=== PATIENT | male | born 1950 | race Two or more races ===

== ENCOUNTER 2018-01-02 18:02 | Emergency (ER) | payer MEDICARE, MEDICAID ==
[~2018-01-02] VITALS: Ht 172.7 cm; Wt 72.6 kg
[2018-01-02 18:02] VITALS: BP 114/75
[~2018-01-02 18:02] MED LIST: ASPI-1152 PO; ATOR10TA PO; LEVO50TA8 PO; MAGN200T5 PO; ZINC220C8 PO
== END 2018-01-02 19:12 | disposition home or self-care (01) ==
LOC: ER 18:23
DX: S63.501A Unspecified sprain of right wrist, initial encounter (principal); E03.9 Hypothyroidism, unspecified; K59.00 Constipation, unspecified; Z95.5 Presence of coronary angioplasty implant and graft; Z79.82 Long term (current) use of aspirin; W01.0XXA Fall on same level from slipping, tripping and stumbling without subsequent striking against object, initial encounter; Y93.89 Activity, other specified; Y92.89 Other specified places as the place of occurrence of the external cause; Y99.8 Other external cause status
CPT/HCPCS: 73100; 73130; 99284; A4606; Z7610

== ENCOUNTER 2020-12-13 05:27 | Emergency (ER) | payer MEDICAID, MEDICARE, OTHER ==
[~2020-12-13] VITALS: Ht 180.3 cm; Wt 73.5 kg
[~2020-12-13 05:27] MED LIST changes: -ASPI-1152 PO; +ASPI-1420 PO; +ZINC1CAP2 PO; -ZINC220C8 PO
--- NOTE | 2020-12-13 05:47 | NUR ---
PT AAOX4. BIBRA FROM HOME C/O PALPITATIONS, HIGH BP, AND HR SINCE LAST NIGHT. PLACED IN BED 2 ON PATHOLOGY ASSISTANT AND PULSE OX. AWAITING ER MD FOR EVAL AND ORDERS. PER PT, TOOK NITRO, MAGNESIUM POWDER, AND 5 "BABY ASPIRINS" ANIMAL SCIENCE INSTRUCTOR.
--- NOTE | 2020-12-13 05:52 | NUR ---
blood obtained and send to lab
[2020-12-13 05:57] LABS: BASOPHILS % (AUTO) 0.3 % (0.0-2.0); EOSINOPHILS % (AUTO) 0.7 % (0.0-6.0); HEMATOCRIT 37 % (39-51); HEMOGLOBIN 12.6 g/dL (13.5-17.5); LYMPHOCYTES # (AUTO) 1.9 K/uL (0.8-4.8); LYMPHOCYTES % (AUTO) 40.8 % (20.0-44.0); MEAN CORPUSCULAR HGB CONC 34 g/dl (31.0-36.0); MEAN CORPUSCULAR VOLUME 94 fL (80-96); MONOCYTES # (AUTO) 0.3 K/uL (0.1-1.30); MONOCYTES % (AUTO) 6.6 % (2.0-12.0); NEUTROPHILS # (AUTO) 2.4 K/uL (1.8-8.9); NEUTROPHILS % (AUTO) 51.6 % (43.0-81.0); PLATELET COUNT (AUTO) 182 K/uL (150-450); RED BLOOD CELL COUNT(AUTO) 3.98 MIL/uL (4.5-6.0); WHITE BLOOD COUNT (AUTO) 4.6 K/uL (4.3-11.0)
[2020-12-13 06:03] LABS: CALCIUM, SERUM 8.7 mg/dL (8.5-10.1); CARBON DIOXIDE 27 mmol/L (21-32); CHLORIDE 106 mmol/L (98-107); GLUCOSE 102 mg/dL (74-106); POTASSIUM 3.8 mmol/L (3.5-5.1); SODIUM SERUM 142 mmol/L (136-145); UREA NITROGEN, BLOOD 19 mg/dL (7-18)
--- NOTE | 2020-12-13 06:06 | NUR ---
RADIOLOGY AT BEDSIDE
[2020-12-13 06:16] LABS: ALANINE AMINOTRANSFERASE 29 U/L (12-78); ALBUMIN 3.9 g/dL (3.4-5.0); ALKALINE PHOSPHATASE 58 U/L (46-116); ASPARTATE AMINOTRANSFERASE 23 U/L (15-37); BILIRUBIN,DIRECT 0.2 mg/dL (0.0-0.2); BILIRUBIN,TOTAL 0.6 mg/dL (0.2-1.0)
--- NOTE | 2020-12-13 06:22 | NUR ---
pcp uzair [phone] and iron handler Lisa [phone]
--- NOTE | 2020-12-13 09:17 | NUR ---
CALLED [employer] DEVELOPER ANALYST DR. BARKER [phone] ETL DATA ARCHITECT IS RATNA WILL BE PAGED.
[2020-12-13 09:52] VITALS: BP 121/71
--- NOTE | 2020-12-13 09:53 | NUR ---
Patient discharged to home in stable condition. Written and verbal after care instructions given. Patient verbalizes understanding of instruction.IV removed. Catheter intact and site benign. Pressure and 4x4 applied to site. No bleeding noted.
== END 2020-12-13 09:53 | disposition home or self-care (01) ==
LOC: ER 05:29
DX: R00.0 Tachycardia, unspecified (principal); R00.2 Palpitations; I44.0 Atrioventricular block, first degree; I10 Essential (primary) hypertension; E03.9 Hypothyroidism, unspecified; E78.00 Pure hypercholesterolemia, unspecified; Z98.890 Other specified postprocedural states; Z79.899 Other long term (current) drug therapy; Z79.82 Long term (current) use of aspirin
CPT/HCPCS: 36415; 71045-TC; 80048-TC; 80076-TC; 83735-TC; 83880; 84484-TC; 85025-TC; 85730-TC

== ENCOUNTER 2022-08-26 20:31 | Inpatient (IN) | payer OTHER ==
[~2022-08-26] VITALS: Ht 175.3 cm; Wt 74.8 kg
--- NOTE | 2022-08-26 21:15 | NUR ---
BIBSISTER FROM HOME C/O L SIDED CP SINCE NOON. 01/09 PAIN. PATIENT IS AAOX4. PATIENT DESCRIBED PAIN PINCHING WHICH TRAVELS FROM LEFT SIDE TO RIGHT SIDE BUT NOW ITS IN THE MINSTERNAL AREA. ATTACHED TO MONITOR. VITALS CHECKED.
--- NOTE | 2022-08-26 21:16 | NUR ---
AIR CONDITIONING MANAGER AT PT'S BEDSIDE
--- NOTE | 2022-08-26 21:16 | NUR ---
EMT AT PT'S BEDSIDE FOR EKG
--- NOTE | 2022-08-26 21:25 | NUR ---
SEWING MACHINES SALESPERSON AT PT'S BEDSIDE
[2022-08-26 21:31] LABS: BASOPHILS % (AUTO) 0.3 % (0.0-2.0); HEMATOCRIT 37 % (39-51); HEMOGLOBIN 12.4 g/dL (13.5-17.5); LYMPHOCYTES # (AUTO) 1.7 K/uL (0.8-4.8); LYMPHOCYTES % (AUTO) 37.5 % (20.0-44.0); MEAN CORPUSCULAR HGB CONC 33 g/dl (31.0-36.0); MEAN CORPUSCULAR VOLUME 92 fL (80-96); MONOCYTES # (AUTO) 0.5 K/uL (0.1-1.30); NEUTROPHILS # (AUTO) 2.4 K/uL (1.8-8.9); NEUTROPHILS % (AUTO) 51.2 % (43.0-81.0); PLATELET COUNT (AUTO) 200 K/uL (150-450); RED BLOOD CELL COUNT(AUTO) 4.05 MIL/uL (4.5-6.0); WHITE BLOOD COUNT (AUTO) 4.7 K/uL (4.3-11.0)
[2022-08-26 21:41] LABS: CALCIUM, SERUM 9.1 mg/dL (8.5-10.1); CARBON DIOXIDE 27 mmol/L (21-32); CHLORIDE 106 mmol/L (98-107); CREATININE 1.1 mg/dL (0.6-1.3); GLUCOSE 102 mg/dL (74-106); SODIUM SERUM 140 mmol/L (136-145); UREA NITROGEN, BLOOD 18 mg/dL (7-18)
[2022-08-26 21:47] LABS: ALANINE AMINOTRANSFERASE 29 U/L (12-78); ALBUMIN 3.7 g/dL (3.4-5.0); ALKALINE PHOSPHATASE 64 U/L (46-116); ASPARTATE AMINOTRANSFERASE 23 U/L (15-37); BILIRUBIN,DIRECT 0.1 mg/dL (0.0-0.2); BILIRUBIN,TOTAL 0.4 mg/dL (0.2-1.0); TOTAL PROTEIN, SERUM 6.7 g/dL (6.4-8.2)
[2022-08-26] MEDS ORDERED: ASPIRIN 325 MG TABLET ONE (22:13)
--- NOTE | 2022-08-26 22:20 | NUR ---
DR MIRANDA CANCELLED THE ASPIRIN. PATIENT TOOK 8 BABY ASPIRIN BEFORE COMING HERE
[2022-08-26] MEDS ORDERED: ASPIRIN 325 MG TABLET PO ONE (22:30)
--- NOTE | 2022-08-26 23:20 | NUR ---
SEASONAL CLERK AT BEDSIDE
--- NOTE | 2022-08-27 00:39 | NUR ---
COVID SWAB DONE AND SENT TO LAB
[2022-08-27] MEDS ORDERED: ONDANSETRON HCL/PF 4 MG/2 ML VIAL IVP PRN (01:00)
[2022-08-27] MEDS ORDERED: ZOLPIDEM TARTRATE 5 MG TABLET PO PRN (01:00)
[2022-08-27] MEDS ORDERED: MAGNESIUM HYDROXIDE 30 ML UDC PO PRN (01:00)
[2022-08-27] MEDS ORDERED: MAG HYDROX/AL HYDROX/SIMETH 30 ML UDC PO PRN (01:00)
[2022-08-27] MEDS ORDERED: Z GUARD REMEDY 4 OZ OINT TP PRN (01:00)
[2022-08-27] MEDS ORDERED: ACETAMINOPHEN 325 MG TABLET PO PRN (01:00)
--- NOTE | 2022-08-27 02:16 | NUR ---
RM 218-2
--- NOTE | 2022-08-27 03:07 | NUR ---
REPORT GIVEN TO DAMARIS CHESTER
--- NOTE | 2022-08-27 03:41 | NUR ---
TRANSFERRED PT TO ROOM VIA ACLS PROTOCOL
[2022-08-27] MEDS: ENOXAPARIN SODIUM 40 MG/0.4 ML DISP.SYRIN SQ SCH ×2 (04:45→21:51)
--- NOTE | 2022-08-27 04:45 | NUR ---
RN ADMITTING NOTE RECEIVED PATIENT VIA GURNEY. PATIENT IS AMBULATORY. A/OX4. ABLE TO MAKE NEEDS KNOWN. PATIENT ON ROOM AIR TOLERATING WELL NO SOB, BREATHING EVENLY. NO COMPLAINS OF CHEST PAIN OR DISCOMFORT AT THE MOMENT. PATIENT IS ON TELE MONITOR READING OF SINUS RHYTHM 79BPM. PATIENT WITH LOOP ON LEFT CHEST PER PATIENT THIS RECORDS HIS HEART ACTIVITY THAT DIRECTLY SENDS THE RHYTHM TO HIS DOCTORS OFFICE HE HAVE THIS FOR OVER 3 YEARS. IV ACCESS ON RIGHT ARM #20 SALINE LOCK NOTED TO BE PATENT AND INTACT. BODY CHECK IS DONE WITH PATIENT PERMISSION: NOTED TO HAVE INTACT SKIN. ALL BELONGING ARE ACCOUNTED FOR. PATIENT IS ORIENTED TO THE ROOM AND HOW TO USE THE CALL LIGHT. PATIENT VERBALIZES UNDERSTANDING. SAFETY MEASURE IN PLACED: BED LOCKED AND IN LOWEST POSITION, HOB ELEVATED, CALL LIGHT AND BEDSIDE TABLE WITHIN PATIENT REACH.
--- NOTE | 2022-08-27 06:56 | NUR ---
RN CLOSING NOTE PATIENT IN BED AWAKE. PATIENT IS AMBULATORY. A/OX4. ABLE TO MAKE NEEDS KNOWN. PATIENT ON ROOM AIR TOLERATING WELL NO SOB, BREATHING EVENLY. NO COMPLAINS OF CHEST PAIN OR DISCOMFORT AT THE MOMENT. PATIENT IS ON TELE MONITOR READING OF SINUS RHYTHM WITH FIRST DEGREE AV BLOCK 71BPM. PATIENT WITH LOOP ON LEFT CHEST. IV ACCESS ON RIGHT ARM #20 SALINE LOCK NOTED TO BE PATENT AND INTACT. ALL DUE MEDICATION IS GIVEN. ALL NEEDS ARE MET. MADE SURE PATIENT IS CLEAN AND COMFORTABLE. SAFETY MEASURE IN PLACED: BED LOCKED AND IN LOWEST POSITION, HOB ELEVATED, CALL LIGHT AND BEDSIDE TABLE WITHIN PATIENT REACH. ENDORSED TO NEXT SHIFT NURSE FOR CONTINUITY OF ARE.
[2022-08-27 07:00] VITALS: BP 122/75
--- NOTE | 2022-08-27 07:10 | NUR ---
ms rn received on bed, awake,alert,oriented x4,not in any form of distress, respirations even and unlabored,no sob noted, came in w/ cc of chest pain, nsr on monitor, denies pain at this time, will monitor patient.
[2022-08-27] MEDS: LEVOTHYROXINE SODIUM 50 MCG TABLET PO SCH (08:41)
[2022-08-27] MEDS: ASPIRIN EC 81 MG TABLET.DR PO SCH (08:41)
[2022-08-27] MEDS: MAGNESIUM OXIDE 400 MG TABLET PO SCH (08:41)
--- NOTE | 2022-08-27 09:00 | NUR ---
ms small breakfast served,due meds given,tolerated well.
[2022-08-27] MEDS ORDERED: UBID100C13 PO (11:10)
[2022-08-27] MEDS ORDERED: CHOL100043 PO (11:10)
[2022-08-27] MEDS ORDERED: ASCO-340 PO (11:10)
[2022-08-27] MEDS ORDERED: OMEG-167 PO (11:10)
--- NOTE | 2022-08-27 17:00 | NUR ---
ms rn was seen by radha byrne/ consuelo for cr angio in am,all needs attended.
--- NOTE | 2022-08-27 19:28 | NUR ---
ms rn on bed, all needs attended.
--- NOTE | 2022-08-27 19:30 | NUR ---
PULMONOLOGY PHYSICIAN OPENING NOTE RECEIVED PT IN BED AWAKE, FAMILY AT BEDSIDE, AMBULATORY PER REPORT. A/OX4, ABLE TO MAKE NEEDS KNOWN. ON ROOM AIR TOLERATING WELL NO SOB, BREATHING EVENLY. DENIES CHEST PAIN OR DISCOMFORT AT THE MOMENT. PATIENT IS ON TELE MONITOR READING OF SINUS RHYTHM WITH FIRST DEGREE AV BLOCK 75BPM. PATIENT WITH LOOP ON LEFT CHEST. IV ACCESS ON RIGHT ARM #20, PATENT, INTACT, FLUSHING WELL. SAFETY MEASURES IN PLACE: BED LOCKED AND IN LOWEST POSITION, HOB ELEVATED, SIDE RAILS UP X3, CALL LIGHT AND BEDSIDE TABLE WITHIN PATIENT REACH. WILL CONTINUE TO MONITOR AND ASSIST.
[2022-08-27 20:00] VITALS: BP 132/69
[2022-08-27] MEDS ORDERED: ATORVASTATIN 10 MG TABLET PO SCH (22:00)
[2022-08-28] VITALS: BP 134/69
[2022-08-28 04:00] VITALS: BP 110/61
[2022-08-28] MEDS: LEVOTHYROXINE SODIUM 50 MCG TABLET PO SCH (06:26)
[2022-08-28 06:43] LABS: BASOPHILS % (AUTO) 0.2 % (0.0-2.0); EOSINOPHILS % (AUTO) 1.4 % (0.0-6.0); HEMATOCRIT 38 % (39-51); HEMOGLOBIN 12.7 g/dL (13.5-17.5); LYMPHOCYTES # (AUTO) 1.8 K/uL (0.8-4.8); MEAN CORPUSCULAR HGB CONC 34 g/dl (31.0-36.0); MEAN CORPUSCULAR VOLUME 92 fL (80-96); MONOCYTES # (AUTO) 0.5 K/uL (0.1-1.30); MONOCYTES % (AUTO) 9.6 % (2.0-12.0); NEUTROPHILS # (AUTO) 2.3 K/uL (1.8-8.9); NEUTROPHILS % (AUTO) 49.8 % (43.0-81.0); PLATELET COUNT (AUTO) 202 K/uL (150-450); RED BLOOD CELL COUNT(AUTO) 4.09 MIL/uL (4.5-6.0); WHITE BLOOD COUNT (AUTO) 4.7 K/uL (4.3-11.0)
--- NOTE | 2022-08-28 06:48 | NUR ---
SIEVE REPAIRER CLOSING NOTE PT IN BED AWAKE, WATCHING TV AT THIS TIME. A/OX4, ABLE TO MAKE NEEDS KNOWN. STABLE ON ROOM AIR TOLERATING WELL NO SOB, BREATHING EVENLY. DENIES CHEST PAIN OR DISCOMFORT AT THE MOMENT. ON TELE MONITOR READING OF SINUS RHYTHM, 64 HR. PATIENT WITH LOOP ON LEFT CHEST. IV ACCESS ON RIGHT ARM #20 SL, PATENT, INTACT, FLUSHING WELL. ALL CARE PROVIDED AND MEDS TOLERATED WELL. SAFETY MEASURES MAINTAINED: BED LOCKED AND IN LOWEST POSITION, HOB ELEVATED, SIDE RAILS UP X3, CALL LIGHT AND BEDSIDE TABLE WITHIN PATIENT REACH. WILL ENDORSE CHANDANA TO DAY SHIFT NURSE.
[2022-08-28 07:08] LABS: CALCIUM, SERUM 8.9 mg/dL (8.5-10.1); CREATININE 0.8 mg/dL (0.6-1.3); MAGNESIUM 2.1 mg/dL (1.8-2.4); PHOSPHORUS 3.3 mg/dL (2.5-4.9)
--- NOTE | 2022-08-28 07:10 | NUR ---
ms rn received on bed, awake,alert,oriented x4,not in any form of distress, respirations even and unlabored,no sob noted,denies pain at this time, was seen by dr. espinoza w/order for stress test, ct agio will be done today at p30 per radiology staff, will wait for them to get patient.all needs attended.
[2022-08-28 08:00] VITALS: BP 112/74
--- NOTE | 2022-08-28 08:20 | NUR ---
ms rn was seen by dr. luis m garcia/ orders made and carried out.
[2022-08-28] MEDS ORDERED: IOHEXOL-350 100 ML VIAL IV ONE (11:46)
[2022-08-28] MEDS ORDERED: NITROGLYCERIN 0.4 MG/TAB BOTTLE ONE (11:46)
[2022-08-28] MEDS ORDERED: METOPROLOL TARTRATE INJ 5 MG/5 ML AMPUL ONE (11:46)
[2022-08-28] MEDS ORDERED: CT SWABBABLE VALVE TRANS SET 1 EA INFUS.SET MC ONE (11:46)
[2022-08-28] MEDS ORDERED: IV NS 0.9% 250 ML IV ONE (11:47)
--- NOTE | 2022-08-28 12:42 | NUR ---
Received in CT Room 1 for CTCA. Made comfortable. Explained procedure to patient. Answered all questions. Initial vital signs stable with no complaints. Given Metropolol 5m and NTG 1/150 SL x1 with no untoward reactions. Procedure tolerated well with stable vital signs (See CTA intervention). Will provide hand off report to floor RN.
[2022-08-28] MEDS: MAGNESIUM OXIDE 400 MG TABLET PO SCH (13:16)
[2022-08-28] MEDS: ASPIRIN EC 81 MG TABLET.DR PO SCH (13:16)
--- NOTE | 2022-08-28 15:00 | NUR ---
ms turning sander tender tolerated well, patient went brought back on the floor, all needs attended
[2022-08-28 16:00] VITALS: BP 106/64
--- NOTE | 2022-08-28 18:00 | NUR ---
ms rn leila=rosalino instruction given and understood, patient went home w/ no distress noted, to have a follow up w/ dr. marroquin in one week.
== END 2022-08-28 18:00 | disposition home or self-care (01) | DRG 303 ==
LOC: ER 20:35 → TELE 08-27 03:12
PROVIDERS: ADMIT Internal Medicine; ATTEND Internal Medicine
DX: I25.110 Atherosclerotic heart disease of native coronary artery with unstable angina pectoris (principal); E03.9 Hypothyroidism, unspecified; E78.00 Pure hypercholesterolemia, unspecified; I10 Essential (primary) hypertension; I25.2 Old myocardial infarction; J44.9 Chronic obstructive pulmonary disease, unspecified; F41.9 Anxiety disorder, unspecified; N40.0 Benign prostatic hyperplasia without lower urinary tract symptoms; Z86.73 Personal history of transient ischemic attack (TIA), and cerebral infarction without residual deficits; Z95.5 Presence of coronary angioplasty implant and graft; K21.9 Gastro-esophageal reflux disease without esophagitis; M19.90 Unspecified osteoarthritis, unspecified site; Z87.440 Personal history of urinary (tract) infections; Z79.899 Other long term (current) drug therapy; Z20.822 Contact with and (suspected) exposure to COVID-19
CPT/HCPCS: 36415; 71045-TC; 75574; 80048-TC; 80061-TC; 80076-TC; 83735-TC; 84100-TC; 84443-TC; 84484-TC; 85025-TC; 85730-TC; 87081-TC; 93307-TC; C9803; G0378; J1650; J3490; J7050; Q9967

== ENCOUNTER 2024-08-08 01:52 | Inpatient (IN) | payer MEDICARE, OTHER ==
[~2024-08-08] VITALS: Ht 180.3 cm; Wt 75.3 kg
[~2024-08-08 01:52] MED LIST changes: +ASCO-340 PO; +CHOL100043 PO; +OMEG-167 PO; +UBID100C13 PO
[2024-08-08 03:24] LABS: CALCIUM, SERUM 8.8 mg/dL (8.5-10.1); CREATININE 1.1 mg/dL (0.6-1.3)
[2024-08-08 03:36] LABS: BASOPHILS % (AUTO) 0.3 % (0.0-2.0); EOSINOPHILS % (AUTO) 0.4 % (0.0-6.0); HEMATOCRIT 35 % (39-51); HEMOGLOBIN 11.9 g/dL (13.5-17.5); LYMPHOCYTES # (AUTO) 1.5 K/uL (0.8-4.8); LYMPHOCYTES % (AUTO) 29.1 % (20.0-44.0); MEAN CORPUSCULAR HEMOGLOBIN 31 PG (26.0-33.0); MEAN CORPUSCULAR HGB CONC 34 g/dl (31.0-36.0); MEAN CORPUSCULAR VOLUME 93 fL (80-96); MONOCYTES # (AUTO) 0.5 K/uL (0.1-1.30); MONOCYTES % (AUTO) 9.3 % (2.0-12.0); NEUTROPHILS # (AUTO) 3.1 K/uL (1.8-8.9); NEUTROPHILS % (AUTO) 60.9 % (43.0-81.0); PLATELET COUNT (AUTO) 177 K/uL (150-450); RED BLOOD CELL COUNT(AUTO) 3.79 MIL/uL (4.5-6.0); RED CELL DISTRIBUTION WIDTH 13.7 % (11.5-15.0)
[2024-08-08 03:38] LABS: ALBUMIN 3.5 g/dL (3.4-5.0); BILIRUBIN,TOTAL 0.5 mg/dL (0.2-1.0); TOTAL PROTEIN, SERUM 6.4 g/dL (6.4-8.2)
[2024-08-08 04:56] LABS: APPEARANCE,URINE CLEAR (CLEAR); BILIRUBIN,URINE NEGATIVE (NEGATIVE); BLOOD, URINE NEGATIVE Ery/uL (NEGATIVE); COLOR,URINE YELLOW (YELLOW); KETONES,URINE NEGATIVE (NEGATIVE); LEUKOCYTE ESTERASE ,URINE 1+ (NEGATIVE); NITRITE, URINE NEGATIVE (NEGATIVE); PH,URINE 6.5 (5.0-8.0); PROTEIN,URINE NEGATIVE (NEGATIVE); UGLUCOSE NEGATIVE (NEGATIVE); UROBILINOGEN,URINE 0.2 EU/dL (0.2)
[2024-08-08 04:57] LABS: ADD URINE CULTURE YES; BACTERIA,URINE Few /HPF (None Seen); RBC,URINE 0-2 /HPF (0-2); SQUAMOUS EPITHELIAL CELL,UR Rare /HPF (None Seen)
[2024-08-08] MEDS ORDERED: Z GUARD REMEDY 4 OZ OINT TP PRN (06:00)
[2024-08-08] MEDS ORDERED: MAG HYDROX/AL HYDROX/SIMETH 30 ML UDC PO PRN (06:00)
[2024-08-08] MEDS ORDERED: ACETAMINOPHEN 325 MG TABLET PO PRN (06:00)
[2024-08-08] MEDS ORDERED: ONDANSETRON HCL/PF 4 MG/2 ML VIAL IVP PRN (06:00)
[2024-08-08] MEDS ORDERED: MAGNESIUM HYDROXIDE 30 ML UDC PO PRN (06:00)
[2024-08-08 07:20] VITALS: O2SAT 100
[2024-08-08] MEDS ORDERED: MULT-594 PO (07:58)
[2024-08-08] MEDS: PANTOPRAZOLE 40 MG TABLET.DR PO SCH (10:10)
[2024-08-08] MEDS ORDERED: CLONIDINE HCL 0.1 MG TABLET PO PRN (15:00)
[2024-08-08 16:00] VITALS: BP 126/79; TEMP 98.4; O2SAT 99
[2024-08-08] MEDS: ASPIRIN EC 81 MG TABLET.DR PO SCH (18:17)
[2024-08-08] MEDS: ATORVASTATIN 10 MG TABLET PO SCH (18:18)
[2024-08-08 20:00] VITALS: BP 138/88; TEMP 97.9; O2SAT 100
[2024-08-09] VITALS: BP 123/72; TEMP 97.5; O2SAT 98
[2024-08-09 04:00] VITALS: BP 124/66; TEMP 97.5; O2SAT 96
[2024-08-09] MEDS: LEVOTHYROXINE SODIUM 50 MCG TABLET PO SCH (06:33)
[2024-08-09 07:02] LABS: BASOPHILS % (AUTO) 0.3 % (0.0-2.0); HEMATOCRIT 37 % (39-51); HEMOGLOBIN 12.4 g/dL (13.5-17.5); LYMPHOCYTES # (AUTO) 1.7 K/uL (0.8-4.8); LYMPHOCYTES % (AUTO) 37.3 % (20.0-44.0); MEAN CORPUSCULAR HEMOGLOBIN 31 PG (26.0-33.0); MEAN CORPUSCULAR HGB CONC 34 g/dl (31.0-36.0); MEAN CORPUSCULAR VOLUME 93 fL (80-96); MONOCYTES # (AUTO) 0.5 K/uL (0.1-1.30); MONOCYTES % (AUTO) 10.4 % (2.0-12.0); NEUTROPHILS # (AUTO) 2.3 K/uL (1.8-8.9); PLATELET COUNT (AUTO) 184 K/uL (150-450); RED BLOOD CELL COUNT(AUTO) 3.96 MIL/uL (4.5-6.0); RED CELL DISTRIBUTION WIDTH 13.6 % (11.5-15.0); WHITE BLOOD COUNT (AUTO) 4.5 K/uL (4.3-11.0)
[2024-08-09 08:15] LABS: CALCIUM, SERUM 8.2 mg/dL (8.5-10.1); CARBON DIOXIDE 28 mmol/L (21-32); CHLORIDE 106 mmol/L (98-107); GLUCOSE 92 mg/dL (74-106); PHOSPHORUS 2.5 mg/dL (2.5-4.9); SODIUM SERUM 138 mmol/L (136-145); UREA NITROGEN, BLOOD 16 mg/dL (7-18)
[2024-08-09] MEDS: MULTIVITAMINS,THERAGRAN 1 UDTAB TABLET PO SCH (08:31)
[2024-08-09] MEDS: CHOLECALCIFEROL 1,000 UNIT TABLET (VIT D3) PO SCH (08:32)
[2024-08-09] MEDS: ASCORBIC ACID 500 MG TABLET PO SCH (08:33)
[2024-08-09] MEDS: MAGNESIUM OXIDE 400 MG TABLET PO SCH (08:40)
[2024-08-09] MEDS ORDERED: Medication Not On Formulary EA (Omega-3 Fatty Acids/Fish Oil (Fish Oil 1,000 Mg Softgel) PO SCH (09:00)
[2024-08-09] MEDS ORDERED: CLON0.1T PO (10:56)
== END 2024-08-09 15:22 | disposition home or self-care (01) | DRG 310 ==
LOC: ER 01:53 → TELE 08:04
PROVIDERS: ADMIT Nurse Practitioner Acute Care; ATTEND Nurse Practitioner Acute Care
DX: R00.2 Palpitations (principal); I16.0 Hypertensive urgency; E03.9 Hypothyroidism, unspecified; I10 Essential (primary) hypertension; I25.10 Atherosclerotic heart disease of native coronary artery without angina pectoris; I25.2 Old myocardial infarction; Z79.82 Long term (current) use of aspirin; Z95.5 Presence of coronary angioplasty implant and graft; Z95.818 Presence of other cardiac implants and grafts
CPT/HCPCS: 36415; 71045-TC; 80048-TC; 80053-TC; 81001; 83735-TC; 83880; 84100-TC; 84443-TC; 84484-TC; 85025-TC; 87086-TC; 93307-TC; G0378

== ENCOUNTER 2024-11-29 17:04 | Inpatient (IN) | payer MEDICARE, OTHER ==
[~2024-11-29] VITALS: Ht 175.3 cm; Wt 80.3 kg
[~2024-11-29 17:04] MED LIST changes: +CLON0.1T PO; +MULT-594 PO
[2024-11-29 17:38] LABS: PLATELET COUNT (AUTO) 197 K/uL (150-450); RED BLOOD CELL COUNT(AUTO) 4.04 MIL/uL (4.5-6.0); RED CELL DISTRIBUTION WIDTH 13.8 % (11.5-15.0); WHITE BLOOD COUNT (AUTO) 4.3 K/uL (4.3-11.0)
[2024-11-29 17:48] LABS: CALCIUM, SERUM 8.5 mg/dL (8.5-10.1); CREATININE 0.9 mg/dL (0.6-1.3); SODIUM SERUM 142 mmol/L (136-145); UREA NITROGEN, BLOOD 18 mg/dL (7-18)
[2024-11-29] MEDS ORDERED: ZOLPIDEM TARTRATE 5 MG TABLET PO PRN (18:00)
[2024-11-29] MEDS ORDERED: ACETAMINOPHEN 325 MG TABLET PO PRN (18:00)
[2024-11-29] MEDS ORDERED: MAG HYDROX/AL HYDROX/SIMETH 30 ML UDC PO PRN (18:00)
[2024-11-29] MEDS ORDERED: ONDANSETRON HCL/PF 4 MG/2 ML VIAL IVP PRN (18:00)
[2024-11-29] MEDS ORDERED: MAGNESIUM HYDROXIDE 30 ML UDC PO PRN (18:00)
[2024-11-29] MEDS ORDERED: Z GUARD REMEDY 4 OZ OINT TP PRN (18:00)
[2024-11-29 20:00] VITALS: BP 135/80; TEMP 97.9; O2SAT 96
[2024-11-29] MEDS ORDERED: MAGNESIUM OXIDE 400 MG TABLET PO PRN (20:00)
[2024-11-29] MEDS: ENOXAPARIN SODIUM 40 MG/0.4 ML DISP.SYRIN SQ SCH (21:20)
[2024-11-30 00:08] VITALS: BP 125/73; TEMP 97.7; O2SAT 97
[2024-11-30 04:00] VITALS: BP 131/70; TEMP 97.2; O2SAT 99
[2024-11-30 08:00] VITALS: BP 135/77; TEMP 98.2; O2SAT 99
[2024-11-30 08:33] LABS: PLATELET COUNT (AUTO) 205 K/uL (150-450); RED BLOOD CELL COUNT(AUTO) 4.29 MIL/uL (4.5-6.0); RED CELL DISTRIBUTION WIDTH 13.3 % (11.5-15.0); WHITE BLOOD COUNT (AUTO) 4.3 K/uL (4.3-11.0)
[2024-11-30 08:37] LABS: CALCIUM, SERUM 8.6 mg/dL (8.5-10.1); CREATININE 0.9 mg/dL (0.6-1.3); PHOSPHORUS 2.7 mg/dL (2.5-4.9); SODIUM SERUM 145.0 mmol/L (136-145); UREA NITROGEN, BLOOD 13.0 mg/dL (7-18)
[2024-11-30] MEDS: ASCORBIC ACID 500 MG TABLET PO SCH (09:32)
[2024-11-30] MEDS: PANTOPRAZOLE 40 MG TABLET.DR PO SCH (09:32)
[2024-11-30] MEDS: MULTIVITAMINS,THERAGRAN 1 UDTAB TABLET PO SCH (09:32)
[2024-11-30] MEDS: ASPIRIN EC 81 MG TABLET.DR PO SCH (09:32)
[2024-11-30] MEDS: LEVOTHYROXINE SODIUM 50 MCG TABLET PO SCH (09:33)
[2024-11-30 12:00] VITALS: BP 137/86; TEMP 98; O2SAT 99
[2024-11-30] MEDS ORDERED: ATORVASTATIN 10 MG TABLET PO SCH (18:00)
== END 2024-11-30 13:10 | disposition home or self-care (01) | DRG 206 ==
LOC: ER 17:09 → TELE1 19:01
PROVIDERS: ADMIT Student in an Organized Health Care Education/Training Program; ATTEND Student in an Organized Health Care Education/Training Program
DX: M94.0 Chondrocostal junction syndrome [Tietze] (principal); I25.10 Atherosclerotic heart disease of native coronary artery without angina pectoris; Z95.5 Presence of coronary angioplasty implant and graft; K59.00 Constipation, unspecified; E03.9 Hypothyroidism, unspecified; I10 Essential (primary) hypertension; D64.9 Anemia, unspecified; I25.2 Old myocardial infarction; Z79.82 Long term (current) use of aspirin; Z86.73 Personal history of transient ischemic attack (TIA), and cerebral infarction without residual deficits; J44.9 Chronic obstructive pulmonary disease, unspecified
CPT/HCPCS: 36415; 71045-TC; 80048-TC; 83735-TC; 83880; 84100-TC; 84443-TC; 84484-TC; 85025-TC; 93307-TC; G0378; J1650

== ENCOUNTER 2025-03-27 16:07 | Emergency (ER) | payer MEDICARE, OTHER ==
[~2025-03-27] VITALS: Ht 180.3 cm; Wt 77.1 kg
[~2025-03-27 16:07] MED LIST changes: -CHOL100043 PO; -CLON0.1T PO; -OMEG-167 PO; -UBID100C13 PO; -ZINC1CAP2 PO
[2025-03-27 16:36] VITALS: TEMP 98.1
[2025-03-27 17:47] LABS: PLATELET COUNT (AUTO) 190 K/uL (150-450); RED BLOOD CELL COUNT(AUTO) 3.72 MIL/uL (4.5-6.0); RED CELL DISTRIBUTION WIDTH 13.9 % (11.5-15.0); WHITE BLOOD COUNT (AUTO) 4.4 K/uL (4.3-11.0)
[2025-03-27 17:51] LABS: CALCIUM, SERUM 8.6 mg/dL (8.5-10.1); CREATININE 1.1 mg/dL (0.6-1.3); SODIUM SERUM 142 mmol/L (136-145); UREA NITROGEN, BLOOD 16 mg/dL (7-18)
[2025-03-27] MEDS ORDERED: ACET-2030 PO (20:07)
[2025-03-27 20:29] VITALS: BP 130/70; O2SAT 99
== END 2025-03-27 20:29 | disposition home or self-care (01) ==
LOC: ER 16:19
DX: R07.89 Other chest pain (principal); I11.9 Hypertensive heart disease without heart failure; I25.2 Old myocardial infarction; E78.00 Pure hypercholesterolemia, unspecified; E03.9 Hypothyroidism, unspecified; Z79.82 Long term (current) use of aspirin
CPT/HCPCS: 36415; 71045-TC; 80048-TC; 84484-TC; 85025-TC

== ENCOUNTER 2025-04-17 13:23 | Emergency (ER) | payer MEDICARE, OTHER ==
[~2025-04-17] VITALS: Ht 180.3 cm; Wt 78.0 kg
[~2025-04-17 13:23] MED LIST changes: +ACET-2030 PO
[2025-04-17 13:50] LABS: PLATELET COUNT (AUTO) 203 K/uL (150-450); RED BLOOD CELL COUNT(AUTO) 4.12 MIL/uL (4.5-6.0); RED CELL DISTRIBUTION WIDTH 13.9 % (11.5-15.0); WHITE BLOOD COUNT (AUTO) 4.7 K/uL (4.3-11.0)
[2025-04-17 13:58] LABS: CALCIUM, SERUM 8.4 mg/dL (8.5-10.1); CREATININE 0.9 mg/dL (0.6-1.3); SODIUM SERUM 141 mmol/L (136-145); UREA NITROGEN, BLOOD 15 mg/dL (7-18)
[2025-04-17 14:04] LABS: ASPARTATE AMINOTRANSFERASE 22 U/L (15-37); TOTAL PROTEIN, SERUM 7.2 g/dL (6.4-8.2)
[2025-04-17 16:44] VITALS: BP 132/73; TEMP 98.3; O2SAT 99
== END 2025-04-17 16:44 | disposition home or self-care (01) ==
LOC: ER 13:40
DX: R00.2 Palpitations (principal); R51.9 Headache, unspecified; I11.9 Hypertensive heart disease without heart failure; I25.10 Atherosclerotic heart disease of native coronary artery without angina pectoris; E78.00 Pure hypercholesterolemia, unspecified; E03.9 Hypothyroidism, unspecified; Z98.890 Other specified postprocedural states; Z86.018 Personal history of other benign neoplasm; Z79.82 Long term (current) use of aspirin
CPT/HCPCS: 36415; 70450-TC; 71045-TC; 80048-TC; 80076-TC; 82962-TC; 84484-TC; 85025-TC